=== PATIENT | male | born 1980 | race Caucasian/White ===

== ENCOUNTER 2016-11-21 20:16 | Emergency (ER) | payer OTHER ==
[2016-11-21 20:31] VITALS: BP 131/85; PULSE 82; RESP 14; TEMP 98.2; O2SAT 97
[2016-11-21] MEDS ORDERED: LET GEL TOPICAL 1 EA SYR TP ONE (20:34)
[2016-11-21] MEDS ORDERED: SKIN ADHESIVE (DERMABOND) 1 EACH TP ONE ×2 (22:14)
[2016-11-21] MEDS ORDERED: CLINDAMYCIN 150MG PREPACK#6 BTL TAKEHOME ONE (22:20)
--- NOTE | 2016-11-21 22:22 | EDPHY ---
H & P Time Seen by Provider: 11/21/16 20:34 HPI/ROS: 36-year-old male, states he slipped while at work hitting his head on glass door which then shattered he then fell landing with his hand outstretched in the glass, he presents with acute right hand pain with glass foreign body in his palm, and multiple small lacerations Review of systems As per HPI General no fever no chills no weakness HEENT no eye pain no eye discharge. No eye redness, no sore throat Respiratory no cough, no shortness of breath Cardiac no chest pain, no peripheral edema GI no abdominal pain, no diarrhea, no constipation, no nausea, no vomiting no flank pain, no hematuria, no dysuria Musculoskeletal no myalgias, no joint pain Heme no easy bruising, no easy bleeding Endo no polyuria, no polydipsia Skin no rashes, no pruritus Neuro no syncope, no dizziness, no headaches Psych is no suicidal ideation, no homicidal ideation Past Medical/Surgical History: Anaphylactic shock secondary to penicillin Social History: Works at [employer] Smoking Status: Current some day smoker Physical Exam: 36 yo M alert and oriented in nad, non toxic appearance in nad at,nc neck supple lungs cta bilat, no resp distress heart rrr abd nabs soft ext right hand right palm with multiple small linear abrasions, 3mm thin flap at base of 5th finger complicated laceration with glass FB in thenar eminence from thumb and digits, good cap refill, no hematoma Constitutional: Initial Vital Signs Temperature (C) 36.8 C 11/21/16 20:27 Heart Rate 82 11/21/16 20:27 Respiratory Rate 14 11/21/16 20:27 Blood Pressure 131/85 H 11/21/16 20:27 O2 Sat (%) 97 11/21/16 20:27 O2 Delivery Mode Room Air Allergies/Adverse Reactions: Penicillins Allergy (Severe, Verified 11/21/16 20:25) Anaphylaxis Home Medications: Medication Instructions Recorded Clindamycin HCl [Clindamycin] 300 mg PO TID #21 cap 11/21/16 Medical Decision Making - Diagnostics Imaging Results: Imaging Impressions Hand X-Ray 11/21/16 20:50 Impression: 1. No definite radiopaque foreign bodies. 2. No definite fracture of the right hand. Procedures: Procedure note-laceration to thenar eminence The wound was irrigated with copious amounts of saline. Lidocaine 1% combined with bupivacaine 0.25% was used for local anesthetic. 6-0 simple interrupted sutures were placed. 4-0 Ethilon was used. Patient tolerated procedure well. Procedure laceration-at base of 5th little finger palmar side The wound was irrigated with copious amounts of saline. Lidocaine 1% was used for local anesthetic. Dermabond Patient tolerated procedure well. ED Course/Re-evaluation: pt seen and evaluated for right hand injury large piece of glass removed from thenar eminence prior to xray xray neg fb, neg fx imp hand laceration Plan Wound care Suture laceration Dermabond to small flap Antibiotic prophylaxis given puncture wound Follow-up workman's comp/Occupational Health Recommend wound check in 2-3 days Recommend suture removal 12 days - Data Points Medications Given: Discontinued Medications Clindamycin (Cleocin 150 Mg Prepack#6) 1 btl TAKEHOME EDNOW ONE PRN Reason: Protocol Stop: 11/21/16 22:21 Last Admin: 11/21/16 22:30 Dose: 1 btl Octyl Cyanoacrylate (Dermabond) 1 each TP EDNOW ONE Stop: 11/21/16 22:15 Last Admin: 11/21/16 22:14 Dose: 1 each Tetracaine/Epinephrine/Lidocaine (Let Gel Topical) 1 ea TP EDNOW ONE Stop: 11/21/16 20:35 Last Admin: 11/21/16 20:38 Dose: 1 ea Departure - Departure Disposition: Home, Routine, Self-Care Clinical Impression: Laceration of hand with foreign body Condition: Good Instructions: Laceration (ED), Skin Adhesive Care (ED) Additional Instructions: You will need a wound check with occupational health in 2-3 days. Stitches out in 12 days. Referrals: NONE *PRIMARY CARE P,. [Primary Care Provider] - As per Instructions Stand Alone Forms: Work Limited Duty, Work Comp Follow Up, Work Excuse Prescriptions: Clindamycin HCl [Clindamycin] 300 mg PO TID #21 cap
== END 2016-11-21 22:37 | disposition home or self-care (01) ==
LOC: CED 20:16
PROC: 0HQFXZZ Repair Right Hand Skin, External Approach (ICD-10-PCS; principal; 2016-11-21)
DX: S61.421A Laceration with foreign body of right hand, initial encounter (principal); F17.200 Nicotine dependence, unspecified, uncomplicated; W25.XXXA Contact with sharp glass, initial encounter; Y92.69 Other specified industrial and construction area as the place of occurrence of the external cause; Y99.0 Civilian activity done for income or pay; Y93.89 Activity, other specified
CPT/HCPCS: 73130-PO